=== PATIENT | female | born 1975 | race American Indian/Alaskan Native ===

== ENCOUNTER 2016-07-07 20:36 | Emergency (ER) | payer OTHER ==
[2016-07-07 20:51] VITALS: BP 132/91
--- NOTE | 2016-07-07 21:23 | EDM.PDOC ---
ED HPI GENERAL MEDICAL PROBLEM - General Chief Complaint: General Stated Complaint: COUGH Time Seen by Provider: 07/07/16 21:10 Source of Information: Reports: Patient History Limitations: Reports: No limitations - History of Present Illness INITIAL COMMENTS - FREE TEXT/NARRATIVE: c/o cough starting last night. Sore throat. No fever, Smoker. Generalized Pain Score (Numeric/FACES): 8 - Related Data Allergies Allergy/AdvReac Type Severity Reaction Status Date / Time No Known Allergies Allergy Verified 07/07/16 20:45 Home Meds: Home Meds . [No Known Home Meds] 11/17/14 [History] Past Medical History - Past Health History Medical/Surgical History: Denies Medical/Surgical History Respiratory History: Reports: Pneumonia, recurrent - Infectious Disease History Infectious Disease History: Reports: Measles Social & Family History - Family History Family Medical History: Noncontributory - Tobacco Use Smoking Status *Q: Current Every Day Smoker Years of Tobacco use: 20 Packs/Tins Daily: 0.3 - Caffeine Use Caffeine Use: Reports: Coffee, Soda - Recreational Drug Use Recreational Drug Use: No ED ROS GENERAL - Review of Systems Review Of Systems: See Below Constitutional: Denies: fever HEENT: Reports: Throat pain Respiratory: Reports: No Symptoms, Shortness of Breath, Cough Cardiovascular: Reports: No symptoms GI/Abdominal: Reports: Vomiting (x1 emesis after cough). Denies: Abdominal pain Musculoskeletal: Reports: other (generalized) Skin: Reports: no symptoms Neurological: Reports: No Symptoms ED EXAM, GENERAL - Physical Exam Exam: See Below Exam Limited By: No limitations General Appearance: alert, no apparent distress, mild distress Eye Exam: bilateral eye: EOMI, PERRL Ears: normal external exam, other (left occluded, right unremarkable) Nose: normal inspection, other Throat/Mouth: Inflammation (posterior pharnyx) Head: atraumatic, normocephalic Neck: normal inspection, lymphadenopathy (L), lymphadenopathy (R) (mild) Respiratory/Chest: no respiratory distress, lungs clear, normal breath sounds Cardiovascular: normal peripheral pulses, regular rate, rhythm, no edema GI/Abdominal: normal bowel sounds Neurological: alert Psychiatric: normal affect Skin Exam: Warm, Dry, Intact Course - Vital Signs Last Recorded V/S: Last Vital Signs Temp 97.7 F 07/07/16 20:45 Pulse 87 07/07/16 20:45 Resp 20 07/07/16 20:45 BP 132/91 H 07/07/16 20:45 Pulse Ox 100 07/07/16 20:45 Departure - Departure Time of Disposition: 21:28 Disposition: Home, Self-Care 01 Condition: good Clinical Impression: Upper respiratory infection Qualifiers: URI type: unspecified viral URI Qualified Code(s): J06.9 - Acute upper respiratory infection, unspecified Instructions: Upper Respiratory Infection, Adult Referrals: PCP,Unobtain [Primary Care Provider] - Forms: ED Department Discharge Additional Instructions: increase fluid intake avoid smoking or smokey environments robitussin OTC one teaspoon every 4-6 hours as needed for cough tylenol or ibuprofen for discomfort humidification
== END 2016-07-07 21:38 | disposition home or self-care (01) ==
LOC: DL.ED 20:36
DX: J06.9 Acute upper respiratory infection, unspecified (principal)
CPT/HCPCS: 87081; 87430; 99282; 99283

== ENCOUNTER 2017-03-14 11:44 | Inpatient (IN) | payer MEDICAID, OTHER ==
[2017-03-14 13:35] LABS: CHLORIDE,CL 106 mmol/L (101-111); SODIUM,NA 138 mmol/L (135-145)
[2017-03-14] MEDS ORDERED: Sodium Chloride 0.9% 10 ML Syringe FLUSH PRN (14:24)
[2017-03-14] MEDS ORDERED: Acetaminophen 325 MG Tab PO PRN (14:24)
[2017-03-14] MEDS ORDERED: Methylergonovine 0.2 MG/1 ML Amp IM PRN (14:25)
[2017-03-14] MEDS ORDERED: Nalbuphine 20 MG/1 ML Amp IM PRN (14:25)
[2017-03-14] MEDS ORDERED: Misoprostol 400 MCG (4 X 100 MCG TAB) RECTAL PRN (14:25)
[2017-03-14] MEDS ORDERED: Lidocaine 1% 30 ML SDV INJECT PRN (14:25)
[2017-03-14] MEDS ORDERED: Carboprost Tromethamine 250 MCG/1 ML Amp IM PRN (14:25)
[2017-03-14] MEDS ORDERED: Ondansetron 4 MG/2 ML SDV IV PRN (14:25)
[2017-03-14] MEDS ORDERED: fentaNYL 100 MCG/2 ML SDV IVPUSH PRN (14:25)
[2017-03-14] MEDS ORDERED: Lactated Ringers 1,000 ML IV SCH (14:30)
--- NOTE | 2017-03-14 15:15 | US ---
Clinical history: 41-year-old elderly prima with late care (high risk) and elevated blood pressure whose clinical nonstress test score is 0. Maximum biophysical profile score 8 of a possible 8 for the sonographic parameters breathing mo vement, motion, tone and amniotic fluid volume. Single live intrauterine gestation with a heart rate of 135 bpm. Amniotic fluid index 20.68 cm.
[2017-03-14] MEDS: Misoprostol 25 MCG (1/4 of 100 MCG) Tab VAG PRN (15:48)
[2017-03-14] MEDS: Potassium Chloride 10 MEQ Tab.ER PO SCH (18:12)
[2017-03-14] MEDS ORDERED: Labetalol 100 MG Tab PO ONE (20:51)
[2017-03-14] MEDS ORDERED: hydrOXYzine HCl 25 MG Tab PO PRN (20:51)
[2017-03-14] MEDS: Lactated Ringers 1,000 ML IV SCH (22:14)
[2017-03-14] MEDS: Oxytocin/Normal Saline 30 UNIT/500 ML BAG IV SCH (22:14)
[2017-03-15] MEDS: Potassium Chloride 10 MEQ Tab.ER PO SCH ×3 (12:12→17:41)
[2017-03-15] MEDS ORDERED: Labetalol 100 MG Tab PO SCH (14:00)
[2017-03-15] MEDS ORDERED: Labetalol 100 MG Tab PO ONE (16:47)
[2017-03-15] MEDS: Labetalol 100 MG Tab PO SCH (20:55)
[2017-03-15] MEDS ORDERED: hydrOXYzine HCl 25 MG Tab PO ONE (21:06)
[2017-03-15] MEDS: Misoprostol 25 MCG (1/4 of 100 MCG) Tab VAG PRN (21:13)
[2017-03-16] MEDS: Lactated Ringers 1,000 ML IV SCH ×4 (01:50→14:44)
[2017-03-16] MEDS: Misoprostol 25 MCG (1/4 of 100 MCG) Tab VAG PRN (01:51)
[2017-03-16] MEDS: Labetalol 100 MG Tab PO SCH ×3 (05:49→17:55)
[2017-03-16] MEDS: Oxytocin/Normal Saline 30 UNIT/500 ML BAG IV SCH ×2 (07:21→14:38)
--- NOTE | 2017-03-16 08:56 | PN ---
DATE: 03/16/2017 SUBJECTIVE: Induction day #2, a 41-year-old, 1, para 0, who was brought in for Cytotec induction on March 14, which has not been progressing very smoothly. She is reporting at this time some increased pain with contractions and stoppage of the little bits of bloody show that she had. movement has been good. She reports a lot of back pain with contractions and finds it very uncomfortable to lay down or sit in bed, so it has been difficult to keep her on her left side for management of her blood pressures. She is requesting that we move forward with because she does not think she can tolerate the pain of labor despite it being explained to her that labor pains and pains are both part of just having a baby unfortunately. HOSPITAL COURSE: Her induction was started with Cytotec in the afternoon, and about 6 hours later, she was javier too frequently and changed over to Pitocin. She was maintained on 6 milliunits of Pitocin for the overnight hours, and the next morning the cervix remained closed and Pitocin was gradually increased throughout the day, and once we got to about 22, we were still having no cervical change, and I had consulted with Dr. Webb, who did not see any different way to manage her case but agreed that we could try taking a break from induction for a few hours and then restarting again, and if the second attempt at induction of labor was unsuccessful, then proceeding with section would be reasonable for failed induction. Otherwise, proceeding with section for standard indications such as distress would always be open as well. Overnight she received 2 doses of Cytotec and now is reporting that the contractions are painful enough to be requesting pain medications and the nurse did try to start some Pitocin this morning at 2 milliunits, however, there was a heart rate deceleration down into the 70s and nurse turned it back off, and we are waiting essentially for a period of recovery right now. OBJECTIVE: Vital Signs: Most recent vitals in the computer; temperature is 98.8, pulse 78, blood pressure 142/80, respiratory rate of 18, O2 saturations 97% on room air. Blood pressures during the night were at the lowest 106/60, and 111/74. Last night, just before her 9 p.m. labetalol dose, it was 108/59, therefore, the medication was held, and then given around 6:00 this morning when she had 2 elevated blood pressures of 153/94, and 150/76. Heart: Remains regular without murmur. Lungs: Remain clear. Abdomen: Soft and nontender. monitoring strip shows baseline heart rate of 130 beats per minute with moderate [id number] variability. No accelerations for a few hours. [place] showing irregular contractions every 2 to 4 minutes. The cervix was examined by the nurse just before 7:00 and remained essentially closed and just a dimple that was effacing, and nurse felt the station was also higher than previous. ASSESSMENT: 1. A 37 and 2/7 weeks gestation. 2. Intrahepatic cholestasis of . 3. Gestational hypertension. 4. Advanced maternal age. 5. Smoker. 6. Late and insufficient care. 7. Rubella nonimmune. Other diagnoses per history and physical. PLAN: At this time, we will see how the baby does the Pitocin being turned off, and if possible we will get the Pitocin started again and see if we still could have a vaginal delivery. If that is not possible, we will proceed with plans for section. Being daytime hours the operating room crew is in-house and available as is the assist. All of this has been explained to the patient and she verbalizes understanding at this time. [facility] /[id number]
[2017-03-16] MEDS: Potassium Chloride 10 MEQ Tab.ER PO SCH ×3 (09:55→18:36)
[2017-03-16] MEDS ORDERED: fentaNYL 100 MCG/2 ML SDV ONE (11:19)
--- NOTE | 2017-03-16 11:41 | PCM.SN ---
- Free Text/Narrative Note: Intrathecal. Sitting position, sterile prep and drape, 1 % lidocaine w bicarb for skinwheal to L2 L3 interspace, introducer, 24 ga pencan x 1. pos CSF, neg parasthesia, neg heme. 15 mcg pf sufenta, 35 mcg pf fentanyl, 6 mg of 0.75% pf bupivacaine and 0.1 ml pf 1:1000 epi injected after CSF aspiration. Pt to L lateral position. Procedure time 1120 to 1145
[2017-03-16] MEDS ORDERED: ePHEDrine 50 MG/ML SDV ONE (12:52)
[2017-03-16] MEDS ORDERED: ePHEDrine 50 MG/ML SDV IVPUSH ONE (12:55)
[2017-03-16] MEDS ORDERED: Sodium Chloride 0.9% 10 ML Syringe FLUSH PRN (13:21)
[2017-03-16] MEDS ORDERED: ceFAZolin 2 GM in Premix Bag 1 BAG IV ONE (13:21)
[2017-03-16] MEDS ORDERED: Citric Acid/Sodium Citrate Solution 30 ML Cup PO ONE (13:21)
[2017-03-16] MEDS ORDERED: Oxytocin/Normal Saline 60 UNIT/1,000 ML BAG ONE (13:23)
[2017-03-16] MEDS ORDERED: Citric Acid/Sodium Citrate Solution 30 ML Cup ONE (13:33)
[2017-03-16] MEDS ORDERED: Oxytocin/Normal Saline 30 UNIT/500 ML BAG IV ONE (14:43)
[2017-03-16] MEDS: Famotidine 20 MG/2 ML SDV IVPUSH PRN (17:13)
[2017-03-16] MEDS ORDERED: Lactated Ringers 1,000 ML IV SCH (18:00)
[2017-03-16] MEDS ORDERED: diphenhydrAMINE 50 MG/ML SDV IVPUSH ONE (20:03)
[2017-03-16] MEDS: Ketorolac 30 MG/ML SDV IVPUSH PRN (20:38)
[2017-03-17] MEDS ORDERED: Naloxone 2 MG/2 ML Syringe IVPUSH PRN (00:27)
[2017-03-17] MEDS ORDERED: Ondansetron 4 MG/2 ML SDV IV PRN (00:27)
[2017-03-17] MEDS ORDERED: Acetaminophen/oxyCODONE 325-5 MG Tab PO PRN (00:27)
[2017-03-17] MEDS ORDERED: diphenhydrAMINE 50 MG/ML SDV IVPUSH PRN (00:27)
[2017-03-17] MEDS ORDERED: Measles, Mumps & Rubella Vaccine 0.5 ML SDV SUBCUT ONE (00:27)
[2017-03-17] MEDS ORDERED: Lactated Ringers 1,000 ML IV SCH (00:30)
[2017-03-17] MEDS: Simethicone 80 MG Tab.Chew PO PRN ×3 (01:09→18:02)
[2017-03-17] MEDS: Acetaminophen/oxyCODONE 325-5 MG Tab PO PRN ×6 (01:09→22:04)
[2017-03-17] MEDS: Ketorolac 30 MG/ML SDV IVPUSH PRN ×2 (02:29→08:18)
[2017-03-17] MEDS: Famotidine 20 MG/2 ML SDV IVPUSH PRN (05:59)
[2017-03-17] MEDS: Docusate Sodium 100 MG Cap PO PRN ×2 (08:17→22:05)
[2017-03-17] MEDS: Ferrous Sulfate 325 MG Tab PO SCH (08:17)
--- NOTE | 2017-03-17 09:04 | PCM.SN ---
<Latha Moctezuma - Last Filed: 03/17/17 09:09> - Free Text/Narrative Note: Obstetric Progress Note Post Operative Day #1 Admit Date: 03/14/17 Today's Date: 03/17/17 Post operative Day #1 for primary section. Subjective: Miya is post op day one from her . She reports her lochia is minimal in degree . She plans to bottle feed. She has Pain controlled with prescription medication and/or oral narcotics. Her benavidez has not been removed. She has not been out of bed. She has started advancing her diet. She has no complaints. No acute events overnight. Objective: Vitals reviewed Blood pressure 127/76, temperature 99.2 F, Pulse 67, RR 16 General: alert, no distress, cooperative, smiling Lungs: clear to auscultation bilaterally CV: Heart regular rate and rhythm, S1, S2 normal, no murmur, click, rub or gallop. Her lower limbs are nontender and have no edema. Patient has not been wearing SCDs Abdomen: Post- soft, non-tender; bowel sounds normal; no masses, no organomegaly. Her incision site is clean, dry, intact with dressing in place, with steffen. Her uterus is Firm, nontender at 2 cm above the umbilicus. Skin: is warm and dry, no visible lesions, well perfused Lab Results: Hgb 12 Platelets 168 RPR: non reactive Rubella: non Immune GBS: negative Hbs: negative Assessment/Plan: Patient is stable and comfortable she is postperative day number one status post primary section. Her postoperative hemoglobin is 12. This is not consistent with post operative anemia. She does not have symptoms of anemia. We will recommend ferrous sulfate. Will closely monitor her I/Os and decrease IVF's when tolerating good PO intake , after this the benavidez can be removed when she is up and ambulating well and able to make it relatively pain free to the bathroom. Pain control will be monitored closely along with her incision site for any signs of infection. Her diet will be advanced when she is feeling able to take PO intake with active bowel sounds and passing gas. Other problems could include: intrahepatic cholestasis of gestational HTN advanced maternal Age Smoker late and insufficient care rubella nonimmune LATHA MOCTEZUMA MD, PGY 3, [facility] <Sarah Andre - Last Filed: 03/21/17 20:42> - Free Text/Narrative Note: Patient staffed with Dr. Moctezuma. Agree with note as written on my behalf, however oral iron not indicated. -[facility] 03/21/[id number]
[2017-03-17] MEDS: Potassium Chloride 10 MEQ Tab.ER PO SCH ×3 (09:54→18:02)
--- NOTE | 2017-03-17 10:27 | OR ---
DATE: 03/16/2017 PRE-PROCEDURE DIAGNOSES: 1. A 37 and 2/7 weeks' intrauterine . 2. 1, para 0. 3. Advanced maternal age. 4. Heartburn in . 5. High risk . 6. Intrahepatic cholestasis of . 7. Late care. 8. Rubella nonimmune. 9. Smoker. 10. intolerance of labor. 11.Labile blood pressures. POSTPROCEDURE DIAGNOSES: 1. A 37 and 2/7 weeks' intrauterine . 2. 1, para 1. 3. Advanced maternal age. 4. Heartburn in . 5. High risk . 6. Intrahepatic cholestasis of . 7. Late care. 8. Rubella nonimmune. 9. Smoker. 10. intolerance of labor. 11.Labile blood pressures. 12.Delivery of viable male without complications. PROCEDURE PERFORMED: Primary low transverse section. FURNACE HELPER: Nani Finch MD. SECOND INSTRUCTOR [employer]: Latha Gonzalez PGY-III . BRIEF HISTORY: A 41-year-old female with the above-listed diagnoses, had been in the hospital since March 14, 2017, for induction of labor. This morning, we were finally able to actually get her into labor and starting to have cervical dilatation. Intrathecal was placed for pain management and artificial rupture of membranes performed and the patient was 4 cm. Unfortunately, she developed recurrent late decelerations with slow recovery and we needed to proceed to section. CONSENT: Discussed with the patient indications, risks, benefits, and alternatives of primary section. She agreed to proceed and proper forms were signed in the chart. Discussed risk of bleeding to the point of requiring blood transfusion, its inherent risks, risk of infection and plan for preoperative antibiotics, risk of injury to any large blood vessels, nerves, veins, internal organs and adjacent structures including, but not limited to, fallopian tubes, ovaries, intestines, ureters, bladder, and potential injury to the baby, potential for complications that she and/or the baby would require transfer to a higher level of care, and her questions were answered. DETAILS: Patient brought to the operating room and spinal anesthesia obtained. She was laid in the dorsal supine position with leftward tilt. abdomen was prepped with Betadine and sterile drapes applied in the usual fashion.Skin tested and Pfannenstiel skin incision made at 1356 with scalpel and carried down to the underlying fascia using cautery and blunt finger dissection. Fascia was incised in the midline with cautery and extended with traction and cautery dissection. Superior fascial edge grasped with Ayaz's and tented up,rectus muscles dissected off bluntly. Inferior fascial edge then grasped with Ayaz's and tented up and rectus muscles again dissected off bluntly. Peritoneal cavity entered with blunt finger dissection and extended with traction. Douglas-o retractor was placed and appropriate location for low transverse uterine incision identified. Uterine incision made with scalpel and final penetration performed with finger dissection and hysterotomy created with traction. amniotic fluid noted to be clear. head brought up through the hysterotomy site and using fundal pressure baby was delivered at 1358. 's mouth and nose were bulb suctioned and three-vessel umbilical cord doubly clamped and cut. Baby taken to the warmer for further evaluation. Cord blood sample obtained. Placenta removed by gentle cord traction and concomitant uterine massage, noted to be highly calcified. Uterus cleared with dry lap sponge. the hysterotomy site closed with a running locked stitch of 0 Vicryl. A second imbricating layer of 0-Vicryl was added with excellent hemostasis. Retractor removed. Pericolic gutters were cleared of all clots and debris. Hysterotomy site irrigated and reinspected and hemostasis verified. Peritoneal layer then closed with a running stitch of 3-0 Vicryl. Fascia then closed with a running stitch of 0-looped PDS. subcutaneous tissues then irrigated and hemostasis verified. Skin closed with steffen. Surgical stop time was 1424. DRAINS: Mckinney catheter 200 mL orange urine. FLUIDS: 400 mL with Pitocin, 600 mL of LR. The patient was also given some ephedrine. ESTIMATED BLOOD LOSS: 300 mL. COMPLICATIONS: None. FINDINGS: Viable male infant, weighing 2885 g, weighing 6 pounds 6 ounces. Length 19-3/4 inches. Apgars 4, 7, and 8. Positive pressure ventilation for respiratory support. Baby responded well to deep suctioning. [facility] /[id number] ANGELICA
[2017-03-17] MEDS: Ibuprofen 800 MG Tab PO PRN (16:19)
[2017-03-18] MEDS: Ibuprofen 800 MG Tab PO PRN ×3 (00:25→21:10)
[2017-03-18] MEDS: Acetaminophen/oxyCODONE 325-5 MG Tab PO PRN ×5 (02:31→21:12)
[2017-03-18] MEDS: Ferrous Sulfate 325 MG Tab PO SCH (07:25)
[2017-03-18] MEDS: Simethicone 80 MG Tab.Chew PO PRN ×2 (07:25→21:10)
[2017-03-18] MEDS: Potassium Chloride 10 MEQ Tab.ER PO SCH ×3 (07:25→17:04)
[2017-03-18] MEDS: Docusate Sodium 100 MG Cap PO PRN ×2 (07:26→21:12)
[2017-03-18] MEDS: Prenatal Multivitamin with Calcium/Folic Acid/Iron Tab PO SCH (11:01)
[2017-03-18] MEDS ORDERED: fentaNYL 100 MCG/2 ML SDV ITHECAL ONE (15:36)
[2017-03-18] MEDS ORDERED: Ketorolac 30 MG/ML SDV IVPUSH ONE (15:45)
[2017-03-18] MEDS ORDERED: Dexamethasone 4 MG/ML SDV IV ONE (15:45)
[2017-03-18] MEDS ORDERED: ePHEDrine 50 MG/ML SDV IV ONE (15:45)
[2017-03-18] MEDS ORDERED: Morphine PF 1 MG/ML Amp ONE (15:45)
[2017-03-19] MEDS: Acetaminophen/oxyCODONE 325-5 MG Tab PO PRN ×3 (01:10→08:55)
[2017-03-19] MEDS: Ibuprofen 800 MG Tab PO PRN (05:12)
[2017-03-19] MEDS: Simethicone 80 MG Tab.Chew PO PRN (08:55)
[2017-03-19] MEDS: Prenatal Multivitamin with Calcium/Folic Acid/Iron Tab PO SCH (08:55)
[2017-03-19] MEDS: Potassium Chloride 10 MEQ Tab.ER PO SCH (08:55)
[2017-03-19] MEDS: Ferrous Sulfate 325 MG Tab PO SCH (08:55)
[2017-03-19] MEDS: Docusate Sodium 100 MG Cap PO PRN (08:55)
[2017-03-19 10:07] VITALS: BP 147/85
--- NOTE | 2017-03-19 12:25 | PCM.SN ---
<Latha Moctezuma - Last Filed: 03/19/17 12:27> - Free Text/Narrative Note: Obstetric Progress Note Post Operative Day #2 Admit Date: 03/14/17 Today's Date: 03/18/17 Post operative Day #2 for primary section. Subjective: Miya is post op day two from her . She reports her lochia is minimal in degree . She plans to bottle feed. She has Pain controlled with prescription medication and/or oral narcotics. Her benavidez has been removed. She has been out of bed. She has started advancing her diet. She has no complaints. No acute events overnight. Objective: Vitals reviewed Blood pressure 105/77, temperature 98.2 F, Pulse 82, RR 16 General: alert, no distress, cooperative, smiling Lungs: clear to auscultation bilaterally CV: Heart regular rate and rhythm, S1, S2 normal, no murmur, click, rub or gallop. Her lower limbs are nontender and have trace edema. Patient has not been wearing SCDs Abdomen: Post- soft, non-tender; bowel sounds normal; no masses, no organomegaly. Her incision site is clean, dry, intact with dressing in place, with steffen. Her uterus is Firm, nontender at 1 cm below the umbilicus. Skin: is warm and dry, no visible lesions, well perfused Lab Results: Hgb 12 Platelets 168 RPR: non reactive Rubella: non Immune GBS: negative Hbs: negative Assessment/Plan: Patient is stable and comfortable she is postperative day number two status post primary section. Patient has no complaints or concerns at this time No signs of anemia and appears stable as her postoperative hemoglobin was 12 and she is asymptomatic. Continue with routine post operative cares in the way of encouraging her to ambulate Her diet has been advanced IV has been removed as she is tolerating good PO intake, Pain seems well controlled on current regime. Benavidez has been removed as she is ambulating well. Continue to monitor her incision site for signs of infection. Anticipate discharge tomorrow Follow up appointment will be early next week and 2 weeks post discharge. Other problems could include: Intrahepatic cholestasis of Gestational HTN Advanced maternal Age Smoker Late and insufficient care Rubella nonimmune LATHA MOCTEZUMA MD, PGY 3, [facility] <Sarah Andre - Last Filed: 03/21/17 22:21> - Free Text/Narrative Note: Patient seen and examined with Dr. Moctezuma. Agree with note as scribed on my behalf. -[facility] 03/21/17 [id number]
--- NOTE | 2017-03-19 12:36 | PCM.DCSUM1 ---
<Latha Moctezuma - Last Filed: 03/19/17 12:36> Discharge Summary - Hospital Course Free Text/Narrative:: Subjective: Miya Cantrell is a 41 y.o. who is post op day three from her . She reports her lochia is minimal in degree . She plans to bottle feed. She has Pain controlled with prescription medication and/or oral narcotics. Her benavidez has been removed. She has been out of bed. She has started advancing her diet. She has no complaints. No acute events overnight, nurses report she has some labile blood pressures ranging from 110s to 170 systolic. RPR: non reactive Rubella: Not immune GBS: negative Hbs: negative Assessment/Plan: Patient is stable and comfortable she is postperative day number three status post primary section. Patient has no complaints or concerns at this time No signs of anemia and appears stable her postoperative hemoglobin was 12. Pain seems well controlled on current regime. She has been up ambulating Bowel function has fully returned Benavidez has been removed. Her IVF's have been stopped Wound site is clean, dry and intact Anticipate discharge today She will discharge on Labetalol 200 mg bid for gestational HTN. Follow up appointment will be on Tuesday03/21/17 and roughly 2 weeks post discharge. LATHA MOCTEZUMA MD, PGY 3, [facility] - Discharge Data Discharge Date: 03/19/17 Discharge Disposition: Home, Self-Care 01 Condition: Good - Patient Instructions Diet: Heart Healthy Diet Activity: As Tolerated, No Lifting Over 20 Pounds Driving: Do Not Drive Showering/Bathing: May Shower Wound/Incision Care: Keep Operative Site/Wound Site Clean and Dry Notify Provider of: Fever, Increased Pain, Swelling and Redness, Drainage, Nausea and/or Vomiting - Discharge Plan Home Medications: Home Meds Pnv with Ca,No.72/Iron/Fa [ Vitamin Plus Low Iron] 1 tab PO DAILY [History] Ranitidine HCl [Zantac] 1 tab PO BID 03/07/17 [History] Patient Handouts: Labetalol tablets, Home Care Instructions for Mom, Care After Delivery - General Info Functional Status: Reports: Pain Controlled - Review of Systems General: Reports: No Symptoms HEENT: Reports: No Symptoms Pulmonary: Reports: No Symptoms Cardiovascular: Reports: No Symptoms Gastrointestinal: Reports: No Symptoms Genitourinary: Reports: No Symptoms - Patient Data Vitals - Most Recent: Last Vital Signs Temp 97.9 F 03/19/17 08:00 Pulse 69 03/19/17 08:00 Resp 18 03/19/17 08:00 BP 147/85 H 03/19/17 10:06 Pulse Ox 100 03/19/17 08:00 Weight - Most Recent: 59.874 kg I&O - Last 24 hours: Intake & Output 03/18/17 03/19/17 03/19/17 22:59 06:59 14:59 Intake Total 600 Balance 600 Med Orders - Current: Current Medications Discontinued Medications Acetaminophen (Tylenol) 650 mg PO Q4H PRN PRN Reason: Pain/Fever Carboprost Tromethamine (Hemabate Ds) 250 mcg IM ASDIRECTED PRN PRN Reason: HEMORRHAGE Citric Acid/Sodium Citrate (Bicitra Solution) 30 ml PO ONETIME ONE Stop: 03/16/17 13:22 Last Admin: 03/16/17 13:34 Dose: 30 ml Citric Acid/Sodium Citrate (Bicitra Solution) Confirm Administered Dose 30 ml .ROUTE .STK-MED ONE Stop: 03/16/17 13:34 Last Admin: 03/16/17 17:55 Dose: Not Given Dexamethasone (Dexamethasone) 8 mg IV .STK-MED ONE Stop: 03/18/17 15:46 Diphenhydramine HCl (Benadryl) 25 mg IVPUSH ONETIME ONE Stop: 03/16/17 20:04 Last Admin: 03/16/17 20:37 Dose: 25 mg Diphenhydramine HCl (Benadryl) 25 mg IVPUSH Q6H PRN PRN Reason: Itching or Nausea Last Admin: 03/17/17 02:26 Dose: 25 mg Docusate Sodium (Colace) 100 mg PO Q12H PRN PRN Reason: Constipation Last Admin: 03/19/17 08:55 Dose: 100 mg Ephedrine Sulfate (Ephedrine Sulfate) Confirm Administered Dose 50 mg .ROUTE .STK-MED ONE Stop: 03/16/17 12:53 Last Admin: 03/16/17 17:48 Dose: Not Given Ephedrine Sulfate (Ephedrine Sulfate) 5 mg IVPUSH ONETIME ONE Stop: 03/16/17 12:56 Last Admin: 03/16/17 12:52 Dose: 5 mg Ephedrine Sulfate (Ephedrine Sulfate) 50 mg IV .STK-MED ONE Stop: 03/18/17 15:46 Famotidine (Pepcid) 20 mg IVPUSH BID PRN PRN Reason: Itching Last Admin: 03/17/17 05:59 Dose: 20 mg Fentanyl (Sublimaze) 50 mcg IVPUSH Q1H PRN PRN Reason: Pain (moderate 4-6) Last Admin: 03/16/17 07:54 Dose: 50 mcg Fentanyl (Sublimaze) Confirm Administered Dose 100 mcg .ROUTE .STK-MED ONE Stop: 03/16/17 11:20 Last Admin: 03/16/17 17:54 Dose: Not Given Fentanyl (Sublimaze) 35 mcg ITHECAL .STK-MED ONE Stop: 03/18/17 15:37 Ferrous Sulfate (Ferrous Sulfate) 325 mg PO BRK GAL[facility]A Last Admin: 03/19/17 08:55 Dose: 325 mg Hydroxyzine HCl (Atarax) 25 mg PO ONETIME PRN PRN Reason: Itching Last Admin: 03/14/17 23:56 Dose: 25 mg Hydroxyzine HCl (Atarax) 25 mg PO ONETIME ONE Stop: 03/15/17 21:07 Last Admin: 03/15/17 21:30 Dose: 25 mg Lactated Ringer's (Ringers, Lactated) 1,000 mls @ 999 mls/hr IV ASDIRECTED [facility] Oxytocin/Sodium Chloride (Pitocin In Ns 30 Unit/500 Ml) 30 unit in 500 mls @ 2 mls/hr IV TITRATE GALILEA; 2 MUNITS/MIN PRN Reason: Protocol Last Titration: 03/16/17 17:18 Dose: 0 mls/hr Lactated Ringer's (Ringers, Lactated) 1,000 mls @ 125 mls/hr IV ASDIRECTED [facility]A Last Admin: 03/16/17 14:44 Dose: 125 mls/hr Cefazolin Sodium/Dextrose 2 gm (/ Premix) 50 mls @ 100 mls/hr IV ONETIME ONE Stop: 03/16/17 13:50 Last Admin: 03/16/17 13:40 Dose: 100 mls/hr Oxytocin/Sodium Chloride (Pitocin In Ns 30 Unit/500 Ml) Confirm Administered Dose 60 unit in 1,000 mls @ as directed .ROUTE .STK-MED ONE Stop: 03/16/17 13:24 Lactated Ringer's (Ringers, Lactated) 1,000 mls @ 125 mls/hr IV ASDIRECTED [facility] Last Admin: 03/16/17 18:04 Dose: 125 mls/hr Lactated Ringer's (Ringers, Lactated) 1,000 mls @ 125 mls/hr IV ASDIRECTED [facility] Last Admin: 03/17/17 01:11 Dose: 125 mls/hr Oxytocin/Sodium Chloride (Pitocin In Ns 30 Unit/500 Ml) 30 unit in 500 mls @ as directed IV .STK-MED ONE Stop: 03/16/17 14:44 Ibuprofen (Motrin) 800 mg PO Q8H PRN PRN Reason: mild pain or fever Last Admin: 03/19/17 05:12 Dose: 800 mg Ketorolac Tromethamine (Toradol) 15 mg IVPUSH Q6H PRN PRN Reason: pain Stop: 03/21/17 19:47 Last Admin: 03/17/17 08:18 Dose: 15 mg Ketorolac Tromethamine (Toradol) 30 mg IVPUSH .STK-MED ONE Stop: 03/18/17 15:46 Labetalol HCl (Normodyne) 100 mg PO ONETIME ONE Stop: 03/14/17 20:52 Last Admin: 03/14/17 21:19 Dose: 100 mg Labetalol HCl (Normodyne) 100 mg PO TID [facility] Last Admin: 03/15/17 13:08 Dose: 100 mg Labetalol HCl (Normodyne) 100 mg PO ONETIME ONE Stop: 03/15/17 16:48 Last Admin: 03/15/17 17:41 Dose: 100 mg Labetalol HCl (Normodyne) 200 mg PO TID [facility] Last Admin: 03/16/17 17:55 Dose: Not Given Lidocaine HCl (Xylocaine-Mpf 1%) 10 ml INJECT ASDIRECTED PRN PRN Reason: Perineal Repair Magnesium Oxide ([facility] Oxide) [facility] Measles/Mumps/Rubella Vaccine Live (M-M-R Ii Vaccine) 0.5 ml SUBCUT .ONCE ONE Stop: 03/17/17 00:28 Last Admin: 03/18/17 11:03 Dose: 0.5 ml Methylergonovine Maleate (Methergine) 0.2 mg IM ASDIRECTED PRN PRN Reason: Hemorrhage Misoprostol (Cytotec) 25 mcg VAG Q4H PRN PRN Reason: cervical ripening Last Admin: 03/16/17 01:51 Dose: 25 mcg Misoprostol (Cytotec) 800 mcg RECTAL ASDIRECTED PRN PRN Reason: Hemorrhage Morphine Sulfate (Duramorph Pf) 0.15 mg .XX .STK-MED ONE Stop: 03/18/17 15:46 Nalbuphine HCl (Nubain) 10 mg IM Q3H PRN PRN Reason: Pain (moderate 4-6) Naloxone HCl (Narcan) 0.1 mg IVPUSH SEECOMMENT PRN PRN Reason: Respiratory Depression Ondansetron HCl (Zofran) 4 mg IV Q4H PRN PRN Reason: Nausea/Vomiting Last Admin: 03/16/17 11:30 Dose: 4 mg Ondansetron HCl (Zofran) 4 mg IV Q4H PRN PRN Reason: Nausea/Vomiting Oxycodone/Acetaminophen (Percocet 325-5 Mg) 1 tab PO Q4H PRN PRN Reason: Pain (moderate 4-6) Oxycodone/Acetaminophen (Percocet 325-5 Mg) 2 tab PO Q4H PRN PRN Reason: Pain (moderate 4-6) Last Admin: 03/19/17 08:55 Dose: 2 tab Potassium Chloride (Klor-Con 10) 10 meq PO TIDMEALS [facility] Last Admin: 03/19/17 08:55 Dose: 10 meq Prenat Multivit/[place]/Iron/Folic Ac ( Plus Iron) 1 each PO WITHBREAKFAST [facility] Last Admin: 03/19/17 08:55 Dose: 1 each Simethicone (Simethicone) 80 mg PO Q4H PRN PRN Reason: Gas Last Admin: 03/19/17 08:55 Dose: 80 mg Sodium Chloride (Saline Flush) 10 ml FLUSH ASDIRECTED PRN PRN Reason: Keep Vein Open Last Admin: 03/15/17 21:19 Dose: 10 ml Sodium Chloride (Saline Flush) 10 ml FLUSH ASDIRECTED PRN PRN Reason: Keep Vein Open Sufentanil Citrate (Sufenta) Confirm Administered Dose 50 mcg .ROUTE .STK-MED ONE Stop: 03/16/17 11:20 Last Admin: 03/16/17 17:54 Dose: Not Given Sufentanil Citrate (Sufenta) 15 mcg ITHECAL .STK-MED ONE Stop: 03/18/17 15:37 Comments:: Objective: General: no distress, cooperative, smiling Lungs: clear to auscultation bilaterally CV: Heart regular rate and rhythm, S1, S2 normal, no murmur, click, rub or gallop. Her lower limbs are nontender and have trace edema. Patient has not been wearing SCDs Abdomen: Post-, soft, non-tender; bowel sounds normal; no masses, no organomegaly. Her incision site is clean, dry and intact, with steffen. Her uterus is Firm, nontender at 3 cm below the umbilicus. Skin: is warm and dry, no visible lesions, well perfused - Exam HEENT: Reports: Pupils Equal, Pupils Reactive, EOMI Psy/Mental Status: Reports: Alert, Normal Affect, Normal Mood *Q Meaningful Use (DIS) - VTE *Q VTE Criteria *Q: - Stroke *Q Stroke Criteria *Q: - AMI *Q AMI Criteria *Q: <Nani Finch - Last Filed: 03/21/17 11:26> Discharge Summary - Discharge Summary/Plan Comment Discharge Summary/Plan Comment: Agree with resident assessment and plan. Patient's blood pressures have been persistently elevated for the past 24 hours. Because of this, will start labetalol 200 mg BID. Patient's baby is seeing Dr. Eng on 03/21/17. She can have a BP check at that time. She was given labetalol for 15 days. Reasons to present to the ED or clinic for evaluation were discussed with the patient, and all questions were answered. Nani Finch MD - Patient Data Vitals - Most Recent: Last Vital Signs Temp 36.6 C 03/19/17 08:00 Pulse 69 03/19/17 08:00 Resp 18 03/19/17 08:00 BP 147/85 H 03/19/17 10:06 Pulse Ox 100 03/19/17 08:00 Med Orders - Current: Current Medications Discontinued Medications Acetaminophen (Tylenol) 650 mg PO Q4H PRN PRN Reason: Pain/Fever Carboprost Tromethamine (Hemabate Ds) 250 mcg IM ASDIRECTED PRN PRN Reason: HEMORRHAGE Citric Acid/Sodium Citrate (Bicitra Solution) 30 ml PO ONETIME ONE Stop: 03/16/17 13:22 Last Admin: 03/16/17 13:34 Dose: 30 ml Citric Acid/Sodium Citrate (Bicitra Solution) Confirm Administered Dose 30 ml .ROUTE .STK-MED ONE Stop: 03/16/17 13:34 Last Admin: 03/16/17 17:55 Dose: Not Given Dexamethasone (Dexamethasone) 8 mg IV .STK-MED ONE Stop: 03/18/17 15:46 Diphenhydramine HCl (Benadryl) 25 mg IVPUSH ONETIME ONE Stop: 03/16/17 20:04 Last Admin: 03/16/17 20:37 Dose: 25 mg Diphenhydramine HCl (Benadryl) 25 mg IVPUSH Q6H PRN PRN Reason: Itching or Nausea Last Admin: 03/17/17 02:26 Dose: 25 mg Docusate Sodium (Colace) 100 mg PO Q12H PRN PRN Reason: Constipation Last Admin: 03/19/17 08:55 Dose: 100 mg Ephedrine Sulfate (Ephedrine Sulfate) Confirm Administered Dose 50 mg .ROUTE .STK-MED ONE Stop: 03/16/17 12:53 Last Admin: 03/16/17 17:48 Dose: Not Given Ephedrine Sulfate (Ephedrine Sulfate) 5 mg IVPUSH ONETIME ONE Stop: 03/16/17 12:56 Last Admin: 03/16/17 12:52 Dose: 5 mg Ephedrine Sulfate (Ephedrine Sulfate) 50 mg IV .STK-MED ONE Stop: 03/18/17 15:46 Famotidine (Pepcid) 20 mg IVPUSH BID PRN PRN Reason: Itching Last Admin: 03/17/17 05:59 Dose: 20 mg Fentanyl (Sublimaze) 50 mcg IVPUSH Q1H PRN PRN Reason: Pain (moderate 4-6) Last Admin: 03/16/17 07:54 Dose: 50 mcg Fentanyl (Sublimaze) Confirm Administered Dose 100 mcg .ROUTE .STK-MED ONE Stop: 03/16/17 11:20 Last Admin: 03/16/17 17:54 Dose: Not Given Fentanyl (Sublimaze) 35 mcg ITHECAL .STK-MED ONE Stop: 03/18/17 15:37 Ferrous Sulfate (Ferrous Sulfate) 325 mg PO BRK [facility] Last Admin: 03/19/17 08:55 Dose: 325 mg Hydroxyzine HCl (Atarax) 25 mg PO ONETIME PRN PRN Reason: Itching Last Admin: 03/14/17 23:56 Dose: 25 mg Hydroxyzine HCl (Atarax) 25 mg PO ONETIME ONE Stop: 03/15/17 21:07 Last Admin: 03/15/17 21:30 Dose: 25 mg Lactated Ringer's (Ringers, Lactated) 1,000 mls @ 999 mls/hr IV ASDIRECTED [facility] Oxytocin/Sodium Chloride (Pitocin In Ns 30 Unit/500 Ml) 30 unit in 500 mls @ 2 mls/hr IV TITRATE G[place]ILEA; 2 MUNITS/MIN PRN Reason: Protocol Last Titration: 03/16/17 17:18 Dose: 0 mls/hr Lactated Ringer's (Ringers, Lactated) 1,000 mls @ 125 mls/hr IV ASDIRECTED [facility] Last Admin: 03/16/17 14:44 Dose: 125 mls/hr Cefazolin Sodium/Dextrose 2 gm (/ Premix) 50 mls @ 100 mls/hr IV ONETIME ONE Stop: 03/16/17 13:50 Last Admin: 03/16/17 13:40 Dose: 100 mls/hr Oxytocin/Sodium Chloride (Pitocin In Ns 30 Unit/500 Ml) Confirm Administered Dose 60 unit in 1,000 mls @ as directed .ROUTE .[facility]-MED ONE Stop: 03/16/17 13:24 Lactated Ringer's (Ringers, Lactated) 1,000 mls @ 125 mls/hr IV ASDIRECTED [facility] Last Admin: 03/16/17 18:04 Dose: 125 mls/hr Lactated Ringer's (Ringers, Lactated) 1,000 mls @ 125 mls/hr IV ASDIRECTED [facility] Last Admin: 03/17/17 01:11 Dose: 125 mls/hr Oxytocin/Sodium Chloride (Pitocin In Ns 30 Unit/500 Ml) 30 unit in 500 mls @ as directed IV .STK-MED ONE Stop: 03/16/17 14:44 Ibuprofen (Motrin) 800 mg PO Q8H PRN PRN Reason: mild pain or fever Last Admin: 03/19/17 05:12 Dose: 800 mg Ketorolac Tromethamine (Toradol) 15 mg IVPUSH Q6H PRN PRN Reason: pain Stop: 03/21/17 19:47 Last Admin: 03/17/17 08:18 Dose: 15 mg Ketorolac Tromethamine (Toradol) 30 mg IVPUSH .STK-MED ONE Stop: 03/18/17 15:46 Labetalol HCl (Normodyne) 100 mg PO ONETIME ONE Stop: 03/14/17 20:52 Last Admin: 03/14/17 21:19 Dose: 100 mg Labetalol HCl (Normodyne) 100 mg PO TID [facility] Last Admin: 03/15/17 13:08 Dose: 100 mg Labetalol HCl (Normodyne) 100 mg PO ONETIME ONE Stop: 03/15/17 16:48 Last Admin: 03/15/17 17:41 Dose: 100 mg Labetalol HCl (Normodyne) 200 mg PO TID [facility] Last Admin: 03/16/17 17:55 Dose: Not Given Lidocaine HCl (Xylocaine-Mpf 1%) 10 ml INJECT ASDIRECTED PRN PRN Reason: Perineal Repair Magnesium Oxide (Magnesium Oxide) [facility] Measles/Mumps/Rubella Vaccine Live (M-M-R Ii Vaccine) 0.5 ml SUBCUT .ONCE ONE Stop: 03/17/17 00:28 Last Admin: 03/18/17 11:03 Dose: 0.5 ml Methylergonovine Maleate (Methergine) 0.2 mg IM ASDIRECTED PRN PRN Reason: Hemorrhage Misoprostol (Cytotec) 25 mcg VAG Q4H PRN PRN Reason: cervical ripening Last Admin: 03/16/17 01:51 Dose: 25 mcg Misoprostol (Cytotec) 800 mcg RECTAL ASDIRECTED PRN PRN Reason: Hemorrhage Morphine Sulfate (Duramorph Pf) 0.15 mg .XX .STK-MED ONE Stop: 03/18/17 15:46 Nalbuphine HCl (Nubain) 10 mg IM Q3H PRN PRN Reason: Pain (moderate 4-6) Naloxone HCl (Narcan) 0.1 mg IVPUSH SEECOMMENT PRN PRN Reason: Respiratory Depression Ondansetron HCl (Zofran) 4 mg IV Q4H PRN PRN Reason: Nausea/Vomiting Last Admin: 03/16/17 11:30 Dose: 4 mg Ondansetron HCl (Zofran) 4 mg IV Q4H PRN PRN Reason: Nausea/Vomiting Oxycodone/Acetaminophen (Percocet 325-5 Mg) 1 tab PO Q4H PRN PRN Reason: Pain (moderate 4-6) Oxycodone/Acetaminophen (Percocet 325-5 Mg) 2 tab PO Q4H PRN PRN Reason: Pain (moderate 4-6) Last Admin: 03/19/17 08:55 Dose: 2 tab Potassium Chloride (Klor-Con 10) 10 meq PO TIDMEALS [facility] Last Admin: 03/19/17 08:55 Dose: 10 meq Prenat Multivit/[employer]/Iron/Folic Ac ( Plus Iron) 1 each PO WITHBREAKFAST [facility] Last Admin: 03/19/17 08:55 Dose: 1 each Simethicone (Simethicone) 80 mg PO Q4H PRN PRN Reason: Gas Last Admin: 03/19/17 08:55 Dose: 80 mg Sodium Chloride (Saline Flush) 10 ml FLUSH ASDIRECTED PRN PRN Reason: Keep Vein Open Last Admin: 03/15/17 21:19 Dose: 10 ml Sodium Chloride (Saline Flush) 10 ml FLUSH ASDIRECTED PRN PRN Reason: Keep Vein Open Sufentanil Citrate (Sufenta) Confirm Administered Dose 50 mcg .ROUTE .STK-MED ONE Stop: 03/16/17 11:20 Last Admin: 03/16/17 17:54 Dose: Not Given Sufentanil Citrate (Sufenta) 15 mcg ITHECAL .STK-MED ONE Stop: 03/18/17 15:37 *Q Meaningful Use (DIS) - VTE *Q VTE Criteria *Q: - Stroke *Q Stroke Criteria *Q: - AMI *Q AMI Criteria *Q:
== END 2017-03-19 11:10 | disposition home or self-care (01) | DRG 766 ==
LOC: DL.US 11:44 → UNDOADMOB 14:41 → DL.OB 14:41 → OBSVTOIN 03-16 13:58 → DL.MS 03-16 13:58 → INTOOBSV 03-16 13:58
PROVIDERS: ADMIT Family Medicine; ATTEND Family Medicine
PROC: 10D00Z1 Extraction of Products of Conception, Low, Open Approach (ICD-10-PCS; principal; 2017-03-16)
PROC: 00HU33Z Insertion of Infusion Device into Spinal Canal, Percutaneous Approach (ICD-10-PCS; 2017-03-16)
PROC: 3E0R3BZ Introduction of Anesthetic Agent into Spinal Canal, Percutaneous Approach (ICD-10-PCS; 2017-03-16)
PROC: 10907ZC Drainage of Amniotic Fluid, Therapeutic from Products of Conception, Via Natural or Artificial Opening (ICD-10-PCS; 2017-03-16)
DX: O26.62 Liver and biliary tract disorders in childbirth (principal); O99.89 Other specified diseases and conditions complicating pregnancy, childbirth and the puerperium; R12 Heartburn; O76 Abnormality in fetal heart rate and rhythm complicating labor and delivery; O13.4 Gestational [pregnancy-induced] hypertension without significant proteinuria, complicating childbirth; O12.03 Gestational edema, third trimester; Z28.3 Underimmunization status; Z3A.37 37 weeks gestation of pregnancy; Z37.0 Single live birth; Z88.1 Allergy status to other antibiotic agents; Z87.891 Personal history of nicotine dependence
CPT/HCPCS: 01961; 01967; 36415; 59025; 76819; 80053; 80305; 81003; 82570; 83615; 83735; 84132; 84156; 84550; 85027; 86850; 86900; 86901; 90707; 94010; A9270-GY; J0690; J1100; J1200; J1885; J2274; J2405; J2590; J3010; J7050; J7120; S0028